=== PATIENT | female | born 1935 | race Caucasian/White ===

== ENCOUNTER 2018-12-03 11:10 | Emergency (ER) | payer MEDICARE, BC ==
[2018-12-03 11:54] LABS: % BASOPHILS 0.2 % (0.0-2.0); % MONOCYTES 4.2 % (2.0-10.0); % NEUTROPHILS 60.6 % (40.0-80.0); EOSINOPHILE ABSOLUTE 0.1 Th/cmm (0.1-0.4); HEMATOCRIT 40.2 % (41.0-60); HEMOGLOBIN 13.6 gm/dL (12-16); LYMPHOCYTE ABSOLUTE 2.8 Th/cmm (1.5-3.0); MEAN CELL VOLUME 95.1 fl (81-100); MEAN CORPUSCULAR HEMOGLOBIN 32.2 pg (27.0-31.0); MEAN CORPUSCULAR HGB CONC 33.9 pg (28.0-36.0); MONOCYTE ABSOLUTE 0.3 Th/cmm (0.3-1.0); PLATELET COUNT 224 Th/cmm (150-400); RED BLOOD COUNT 4.23 Mil/cmm (3.80-5.20); RED CELL DISTRIBUTION WIDTH 12.7 % (11.5-20.0); WHITE BLOOD COUNT 8.2 Th/cmm (4.8-10.8)
[2018-12-03 12:10] LABS: INR 1.01 (0.5-1.4); PROTHROMBIN TIME (TEST) 10.5 SECONDS (9.5-11.5)
[2018-12-03 12:17] LABS: ALBUMIN 3.9 gm/dL (3.7-5.3); ALKALINE PHOSPHATASE 138 U/L (34-104); ANION GAP 14.2 (7.0-16.0); BILIRUBIN,TOTAL 0.6 mg/dL (0.3-1.0); BUN - UREA NITROGEN 11 mg/dL (7-25); CALCIUM SERUM 9.3 mg/dL (8.6-10.3); CARBON DIOXIDE 27.4 mEq/L (21.0-31.0); CHLORIDE 101 mEq/L (98-107); CREATININE - SERUM 0.6 mg/dL (0.6-1.2); GLUCOSE 125 mg/dL (70-105); POTASSIUM SERUM 3.6 mEq/L (3.5-5.1); SGOT 21 U/L (13-39); SGPT/ALT 12 U/L (7-52); SODIUM SERUM 139 mEq/L (136-145); TOTAL PROTEIN,SERUM 7.7 gm/dL (6.0-8.3)
--- NOTE | 2018-12-04 09:24 | Diagnostic Imaging Report ---
Exam: CT examination of the lumbar cervical spine HISTORY: Trauma Total DLP equals 740 CTDI equals 29.9 Findings: Multiple contiguous thin section of the lumbar sacral spine obtained for plating with coronal sagittal reconstruction technique. 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 There is no evidence for acute fracture dislocation spondylolysis or spondylolisthesis. No prevertebral soft tissue swelling is noted. The neural canal is intact. The aorta is calcified. IMPRESSION : Extensive degenerative changes lumbar sacral spine, with old compression fractures throughout the lumbar vertebrae, degenerative osteopenia. Superimposed osteoporosis.
--- NOTE | 2018-12-04 09:26 | Diagnostic Imaging Report ---
Exam: CT examination of the pelvis HISTORY: Trauma Total DLP equals 261 CTDI equals 6.3 Findings: Multiple contiguous thin section of the abdomen pelvis obtained from lower thorax to pubic symphysis without the administration of oral intravenous contrast material, no prior studies available comparison. The study demonstrates mild peribronchial right basilar infiltrate with bilateral pleural thickening. The liver and spleen intact. The kidneys demonstrate no evidence of obstructive uropathy or nephrolithiasis. Nonobstructing left renal calculi noted. Pancreas is intact. The gallbladder is contracted. No free fluid is noted. Metallic hardware throughout the hip joints appreciated. The uterus is intact. Old fracture of the right superior pubic ramus is noted. There is evidence for degenerative changes of lumbar sacral spine. IMPRESSION: Essentially unremarkable examination of the abdomen pelvis, nonobstructing left renal calculi. Right lower lobe infiltrate versus atelectasis with pleural thickening.
--- NOTE | 2018-12-04 09:29 | Diagnostic Imaging Report ---
Exam: Portable chest x-ray HISTORY: Trauma Findings: Portable summation of the chest at 1147 reviewed, no prior studies available comparison. No acute pulmonic infiltrates or effusions are noted. Mild atelectatic changes and pleural thickening left base appreciated. There is evidence for COPD changes. IMPRESSION: COPD changes no acute disease.
--- NOTE | 2018-12-05 11:31 | ED Physician Chart ---
ED Chief Complaint/HPI - Patient Information Date Seen:: 12/03/18 Time Seen:: 11:40 Chief Complaint:: BACK PAIN History of Present Illness:: THIS IS AN 83 YO FEMALE WITH CHRONIC BACK PAIN AND WANTS PAIN MEDICATION. SHE RAN OUT OF MEDICATION GIVEN TO HER BY HER PMD. Allergies:: Allergies Allergy/AdvReac Type Severity Reaction Status Date / Time Penicillins [PCN] AdvReac Verified 12/03/18 11:29 Historian:: Patient, Family Member (DAUGHTER) Review:: Nurse's Note Reviewed ED Review of Systems - Review of Systems General/Constitutional: No fever, No chills, No weight loss, No weakness, No diaphoresis, No edema, No loss of appetite Skin: No skin lesions, No rash, No bruising Head: No headache, No light-headedness Eyes: No loss of vision, No pain, No diplopia ENT: No earache, No nasal drainage, No sore throat, No tinnitus Neck: No neck pain, No swelling, No thyromegaly, No stiffness, No mass noted Cardio Vascular: No chest pain, No palpitations, No PND, No orthopnea, No edema Pulmonary: No SOB, No cough, No sputum, No wheezing GI: No nausea, No vomiting, No diarrhea, No pain, No melena, No hematochezia, No constipation, No hematemesis G/U: No dysuria, No frequency, No hematuria Musculoskeletal: No bone or joint pain, Back pain, No muscle pain Endocrine: No polyuria, No polydipsia Psychiatric: No prior psych history, No depression, No anxiety, No suicidal ideation Hematopoietic: No bruising, No lymphadenopathy Allergic/Immuno: No urticaria, No angioedema Neurological: No syncope, No focal symptoms, No weakness, No paresthesia, No headache, No seizure, No dizziness, No confusion, No vertigo ED Past Medical History - Past Medical History Obtainable: Yes Past Medical History: Arthritis Family History: None Social History: Non Smoker, No Alcohol, No Drug Use Surgical History: None Psychiatricy History: None Medication: Reviewed Family Medical History - Family Member Daughter History Unknown: Yes Living Status: Still Living ED Physical Exam - Physical Examination Other Extremities comments:: THIS PATIENT HAS SEVERE MUSCLE WASTING OF ALL FOUR EXTREMITIES. Other Misc comments:: THERE IS LOWER BACK PARASPINOUS TENDERNESS NOTED. ED Labs/Radiology/EKG Results - Lab Results Results: Laboratory Tests 12/03/18 12/03/18 12/03/18 11:50 11:50 11:50 WBC 8.2 RBC 4.23 Hgb 13.6 Hct 40.2 L MCV 95.1 MCH 32.2 H MCHC Differential 33.9 RDW 12.7 Plt Count 224 MPV 7.0 Neutrophils % 60.6 Lymphocytes % 34.0 Monocytes % 4.2 Eosinophils % 1.0 Basophils % 0.2 PT 10.5 INR 1.01 PTT (Actin FS) 27.5 Sodium 139 Potassium 3.6 Chloride 101 Carbon Dioxide 27.4 Anion Gap 14.2 BUN 11 Creatinine 0.6 Est GFR ( Amer) TNP Est GFR (Non-Af Amer) TNP BUN/Creatinine Ratio 18.3 Glucose 125 H Calcium 9.3 Total Bilirubin 0.6 AST 21 ALT 12 Alkaline Phosphatase 138 H Troponin I Total Protein 7.7 Albumin 3.9 Globulin 3.8 Albumin/Globulin Ratio 1.0 12/03/18 11:50 WBC RBC Hgb Hct MCV MCH MCHC Differential RDW Plt Count MPV Neutrophils % Lymphocytes % Monocytes % Eosinophils % Basophils % PT INR PTT (Actin FS) Sodium Potassium Chloride Carbon Dioxide Anion Gap BUN Creatinine Est GFR ( Amer) Est GFR (Non-Af Amer) BUN/Creatinine Ratio Glucose Calcium Total Bilirubin AST ALT Alkaline Phosphatase Troponin I 0.01 Total Protein Albumin Globulin Albumin/Globulin Ratio - Radiology Results Results: CT SCAN OF THE LS SPINE = OLD FX NOTED AND SEVERE DEGENERATIVE DISEASE. ED Assessment - Assessment General Assessment: SEVERE LOWER BACK DEGENERATIVE DISEASE. ED Septic Shock - . Is Septic Shock (SBP<90, OR Lactate>4 mmol\L) present?: No ED Reassessment (Disposition) - Reassessment Reassessment Condition:: Improved - Diagnosis Diagnosis:: CHRONIC LOWER BACK DEGENERATIVE DISEASE - Aftercare/Follow up Instructions Aftercare/Follow-Up Instructions:: Counseled pt regarding lab results/diagnosis & need follow up, Refer to Discharge Instructions, Counseled pt & family regarding lab results/diagnosis & need follow up Medication Prescribed:: ROBAXIN 750 - Patient Disposition Discharge/Transfer:: Home Condition at Disposition:: Improved
== END 2018-12-03 13:25 | disposition home or self-care (01) ==
LOC: ER 11:10
DX: M51.36 Other intervertebral disc degeneration, lumbar region (principal); G89.29 Other chronic pain; M19.90 Unspecified osteoarthritis, unspecified site; Z88.0 Allergy status to penicillin; R94.31 Abnormal electrocardiogram [ECG] [EKG]
CPT/HCPCS: 99284; 96372; 93005; 71045; 72131; 74176; 84484; 36415; 85025; 85610; 85730; 80053; J1885; Z7502

== ENCOUNTER 2018-12-23 18:51 | Emergency (ER) | payer MEDICARE, BC ==
[2018-12-23 19:40] LABS: URINE SOURCE RANDOM
[2018-12-23 19:45] LABS: URINE BILIRUBIN NEGATIVE (NEGATIVE); URINE BLOOD NEGATIVE (NEGATIVE); URINE GLUCOSE (UA) NEGATIVE (NEGATIVE); URINE KETONE NEGATIVE (NEGATIVE); URINE LEUKOCYTE ESTERASE NEGATIVE (NEGATIVE); URINE NITRATE NEGATIVE (NEGATIVE); URINE PH 7.5 (4.6 - 8.0); URINE PROTEIN NEGATIVE (NEGATIVE); URINE UROBILINOGEN 0.2 E.U./dL (0.2 - 1.0)
[2018-12-23 20:01] LABS: URINE CLARITY CLEAR (CLEAR); URINE COLOR YELLOW; URINE MICROSCOPIC INDICATED? YES
[2018-12-23 20:02] LABS: URINE BACTERIA FEW /hpf (NONE SEEN); URINE EPITHELIAL CELLS FEW /lpf (FEW); URINE RBC NONE SEEN /hpf (0-5); URINE WBC 0-2 /hpf (0-5)
[2018-12-23 20:03] LABS: % BASOPHILS 0.6 % (0.0-2.0); % EOSINOPHILS 1.7 % (0.0-5.0); % LYMPHOCYTES 33.6 % (20.0-50.0); % MONOCYTES 5.6 % (2.0-10.0); % NEUTROPHILS 58.5 % (40.0-80.0); EOSINOPHILE ABSOLUTE 0.1 Th/cmm (0.1-0.4); HEMATOCRIT 40.5 % (41.0-60); HEMOGLOBIN 13.6 gm/dL (12-16); LYMPHOCYTE ABSOLUTE 2.6 Th/cmm (1.5-3.0); MEAN CELL VOLUME 95.9 fl (81-100); MEAN CORPUSCULAR HEMOGLOBIN 32.1 pg (27.0-31.0); MEAN CORPUSCULAR HGB CONC 33.5 pg (28.0-36.0); MEAN PLATELET VOLUME 7.5 fl; MONOCYTE ABSOLUTE 0.4 Th/cmm (0.3-1.0); NEUTROPHILE ABSOLUTE 4.6 Th/cmm (1.8-8.0); PLATELET COUNT 196 Th/cmm (150-400); RED BLOOD COUNT 4.22 Mil/cmm (3.80-5.20); RED CELL DISTRIBUTION WIDTH 13.1 % (11.5-20.0); WHITE BLOOD COUNT 7.7 Th/cmm (4.8-10.8)
[2018-12-23 20:09] LABS: INR 1.05 (0.5-1.4); PROTHROMBIN TIME (TEST) 10.9 SECONDS (9.5-11.5)
[2018-12-23 20:15] LABS: ALB/GLOB RATIO 1.2 (1.0-1.8); ALBUMIN 4.4 gm/dL (3.7-5.3); ALKALINE PHOSPHATASE 133 U/L (34-104); ANION GAP 11.5 (7.0-16.0); BILIRUBIN,TOTAL 0.5 mg/dL (0.3-1.0); BUN - UREA NITROGEN 16 mg/dL (7-25); CALCIUM SERUM 9.4 mg/dL (8.6-10.3); CARBON DIOXIDE 27.5 mEq/L (21.0-31.0); CHLORIDE 102 mEq/L (98-107); CREATININE - SERUM 0.6 mg/dL (0.6-1.2); GLUCOSE 99 mg/dL (70-105); LIPASE 61 U/L (11-82); SGOT 19 U/L (13-39); SGPT/ALT 9 U/L (7-52); SODIUM SERUM 137 mEq/L (136-145)
--- NOTE | 2018-12-23 20:43 | ED Physician Chart ---
ED Chief Complaint/HPI - Patient Information Allergies:: Allergies Allergy/AdvReac Type Severity Reaction Status Date / Time Penicillins [PCN] AdvReac Verified 12/03/18 11:29 Vitals:: Vital Signs - 8 hr 12/23/18 19:36 Temp 97.4 F HR 79 RR 22 BP 115/71 O2 Sat % 97 Family Medical History - Family Member Daughter History Unknown: Yes Living Status: Still Living ED Labs/Radiology/EKG Results - Lab Results Results: Laboratory Tests 12/23/18 12/23/18 12/23/18 18:30 19:48 19:48 WBC 7.7 RBC 4.22 Hgb 13.6 Hct 40.5 L MCV 95.9 MCH 32.1 H MCHC Differential 33.5 RDW 13.1 Plt Count 196 MPV 7.5 Neutrophils % 58.5 Lymphocytes % 33.6 Monocytes % 5.6 Eosinophils % 1.7 Basophils % 0.6 PT 10.9 INR 1.05 PTT (Actin FS) 29.6 Sodium Potassium Chloride Carbon Dioxide Anion Gap BUN Creatinine Est GFR ( Amer) Est GFR (Non-Af Amer) BUN/Creatinine Ratio Glucose Calcium Total Bilirubin AST ALT Alkaline Phosphatase Troponin I Total Protein Albumin Globulin Albumin/Globulin Ratio Lipase Urine Source RANDOM Urine Color YELLOW Urine Clarity CLEAR Urine pH 7.5 Ur Specific [place] 1.010 Urine Protein NEGATIVE Urine Glucose (UA) NEGATIVE Urine Ketones NEGATIVE Urine Blood NEGATIVE Urine Nitrate NEGATIVE Urine Bilirubin NEGATIVE Urine Urobilinogen 0.2 Ur Leukocyte Esterase NEGATIVE Urine RBC NONE SEEN Urine WBC 0-2 Ur Epithelial Cells FEW Urine Bacteria FEW 12/23/18 12/23/18 19:48 19:48 WBC RBC Hgb Hct MCV MCH MCHC Differential RDW Plt Count MPV Neutrophils % Lymphocytes % Monocytes % Eosinophils % Basophils % PT INR PTT (Actin FS) Sodium 137 Potassium 4.0 Chloride 102 Carbon Dioxide 27.5 Anion Gap 11.5 BUN 16 Creatinine 0.6 Est GFR ( Amer) TNP Est GFR (Non-Af Amer) TNP BUN/Creatinine Ratio 26.7 Glucose 99 Calcium 9.4 Total Bilirubin 0.5 AST 19 ALT 9 Alkaline Phosphatase 133 H Troponin I < 0.01 L Total Protein 8.0 Albumin 4.4 Globulin 3.6 Albumin/Globulin Ratio 1.2 Lipase 61 Urine Source Urine Color Urine Clarity Urine pH Ur Specific [place] Urine Protein Urine Glucose (UA) Urine Ketones Urine Blood Urine Nitrate Urine Bilirubin Urine Urobilinogen Ur Leukocyte Esterase Urine RBC Urine WBC Ur Epithelial Cells Urine Bacteria ED Septic Shock - . Is Septic Shock (SBP<90, OR Lactate>4 mmol\L) present?: No - <6hrs of presentation: Vital Signs: Vital Signs - 8 hr 12/23/18 19:36 Temp 97.4 F HR 79 RR 22 BP 115/71 O2 Sat % 97 ED Reassessment (Disposition) - Reassessment Reassessment:: abd pain improved Reassessment Condition:: Improved - Diagnosis Diagnosis:: abd pain improved - Aftercare/Follow up Instructions Aftercare/Follow-Up Instructions:: Counseled pt regarding lab results/diagnosis & need follow up - Patient Disposition Discharge/Transfer:: Home Condition at Disposition:: Stable
== END 2018-12-23 21:05 | disposition home or self-care (01) ==
LOC: ER 18:51
DX: R10.9 Unspecified abdominal pain (principal); Z88.0 Allergy status to penicillin
CPT/HCPCS: 36415-UA; 80053-TC; 81001-TC; 83690-TC; 84484-TC; 85025-TC; 85610-TC; Z7502